=== PATIENT | male | born 1930 | race Caucasian/White ===

== ENCOUNTER 2018-06-12 11:36 | Emergency (ER) | payer MEDICARE ==
[2018-06-12 12:25] VITALS: BP 176/56
--- NOTE | 2018-06-12 13:26 | UC ---
Hip/Pelvis Pain - HPI Summary HPI Summary: left hip pain x 2 days s/p fall on his left side pain is 6 out of 10 , worse with walking and standing better with rest, - History Of Current Complaint Chief Complaint: UCLowerExtremity Stated Complaint: SP FALL-LT HIP PAIN Time Seen by Provider: 06/12/18 12:25 Hx Obtained From: Patient Onset/Duration: Sudden Onset, Lasting Days - 2 days ago, Still Present Timing: Constant Severity Initially: Moderate Severity Currently: Moderate Pain Intensity: 3 Pain Scale Used: 0-10 Numeric Location: Discrete At: - left hip Character Of Pain: Aching Aggravating Factor(s): Movement, Weight Bearing Alleviating Factor(s): Rest Associated Signs And Symptoms: Positive: Weakness. Negative: Swelling, Redness , Bruising, Fever, Dizziness, Syncope, Abdominal Pain, Knee Pain - Allergies/Home Medications Allergies/Adverse Reactions: Allergies Allergy/AdvReac Type Severity Reaction Status Date / Time apple Allergy Swelling Verified 06/12/18 12:24 Of Face,Lips,& Throat gluten Allergy Coughing Verified 06/12/18 12:24 peanut Allergy Hives/Diff. Verified 06/12/18 12:24 Breathing/I tching plum Allergy Swelling Verified 06/12/18 12:24 Of Face,Lips,& Throat Home Medications: Home Medications Cholecalciferol (Vitamin D3) [D 1000] 1,000 unit PO DAILY 06/12/18 [History Confirmed 06/12/18] Edta Supplement 1 gm PO DAILY 06/12/18 [History Confirmed 06/12/18] Glucosamine Sulfate Dipot Chlr [Glucosamine] 1 tab PO DAILY 06/12/18 [History Confirmed 06/12/18] Methylsulfonylmethane [MSM] 1,000 mg PO DAILY 06/12/18 [History Confirmed ] Nacl Eye Drops 1 drop BOTH EYES DAILY 06/12/18 [History Confirmed 06/12/18] Phytonadione (Vit K1) [Vitamin K] 1 tab PO DAILY 06/12/18 [History Confirmed ] dilTIAZem HCl [Diltiazem HCl ER] 120 mg PO DAILY 06/12/18 [History Confirmed ] PMH/Surg Hx/FS Hx/Imm Hx - Additional Past Medical History Additional PMH: 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 right hip replacement. back surgery - Family History Known Family History: Positive: Hypertension - Social History Alcohol Use: None Substance Use Type: None Smoking Status (MU): Never Smoked Tobacco Review of Systems All Other Systems Reviewed And Are Negative: Yes Constitutional: Positive: Negative Skin: Positive: Negative Eyes: Positive: Negative ENT: Positive: Negative Respiratory: Positive: Negative Is Patient Immunocompromised?: No Physical Exam Triage Information Reviewed: Yes Appearance: Well-Appearing, Well-Nourished, Pain Distress Vital Signs: Initial Vital Signs Temp 99.0 F 06/12/18 12:14 Pulse 70 06/12/18 12:14 Resp 18 06/12/18 12:14 BP 176/56 06/12/18 12:14 Pulse Ox 98 06/12/18 12:14 Vital Signs Reviewed: Yes Eye Exam: Normal ENT: Positive: Normal ENT inspection, Hearing grossly normal, Pharynx normal Neck: Positive: Supple, Nontender, No Lymphadenopathy Respiratory: Positive: Chest non-tender, Lungs clear, Normal breath sounds Cardiovascular: Positive: RRR, No Murmur, Pulses Normal Musculoskeletal: Positive: Other: - left hip : normal size, no swelling, no bruising , + diffuse tenderness pian with hip flexion . limited strength Neurological: Positive: Alert Skin Exam: Normal Diagnostics - Radiology No standard instances Radiology Interpretation Completed By: Radiologist Summary of Radiographic Findings: xray left hip: IMPRESSION: THERE IS A FRACTURE OF THE LEFT INFERIOR PUBIC RAMUS AGE INDETERMINATE. ALTHOUGH LIKELY LIKELY OLD. THIS CAN BE FURTHER EVALUATED WITH CT IMAGING NEEDED. Hip Injury Course/Dx - Differential Dx/Diagnosis Provider Diagnosis: Contusion of left hip Discharge - Sign-Out/Discharge Documenting (check all that apply): Patient Departure All imaging exams completed and their final reports reviewed: Yes - Discharge Plan Condition: Stable Disposition: HOME Patient Education Materials: Hip Contusion (ED) Referrals: Nestor Palomo MD [Primary Care Provider] - 7 Days - Billing Disposition and Condition Condition: STABLE Disposition: Home
== END 2018-06-12 13:19 | disposition home or self-care (01) ==
LOC: UCCORT 11:36
DX: S70.02XA Contusion of left hip, initial encounter (principal); S32.592A Other specified fracture of left pubis, initial encounter for closed fracture; W19.XXXA Unspecified fall, initial encounter; Y92.9 Unspecified place or not applicable; I10 Essential (primary) hypertension; Z96.641 Presence of right artificial hip joint; Z91.010 Allergy to peanuts; Z91.018 Allergy to other foods
CPT/HCPCS: 99201; G0463